=== PATIENT | male | born 1950 | race Caucasian/White ===

== ENCOUNTER 2018-04-21 14:49 | Outpatient (CLI) | payer MEDICARE, BC ==
--- NOTE | 2018-04-22 10:36 | MRI Report ---
Reason: STRAIN OF LEFT ACHILLES TENDON, INITIAL ENCTR Procedure Date: 04/21/2018 Accession Number: [id number] / [id number] Procedure: MRI - Ankle LT W/O CPT Code: FULL RESULT: EXAM: LEFT ANKLE/HINDFOOT MRI WITHOUT CONTRAST EXAM DATE: 04/21/2018 03:53 PM. CLINICAL HISTORY: Strain of left achilles tendon, initial encounter. COMPARISON: ANKLE 3 VIEW LT 03/31/2018 2:28 PM. TECHNIQUE: Multiplanar, multisequence T1-weighted and fluid-sensitive sequences of the ankle/hindfoot without contrast. Other: None. FINDINGS: Bones and Articular Cartilage: Small marginal osteophytes at the tibial plafond. No acute fracture or bone lesions. Articular cartilage is within normal limits. Ligaments: The anterior and posterior tibiofibular, anterior and posterior talofibular, and calcaneofibular ligaments are intact. The deltoid ligaments are intact, but thickened. The spring ligament is intact. Anterior Tendons: The tibialis anterior, extensor hallucis longus, and extensor digitorum longus tendons are unremarkable. Medial Tendons: The tibialis posterior, flexor digitorum longus, and flexor hallucis longus tendons are unremarkable. Lateral Tendons: The peroneus brevis and longus are unremarkable. Achilles Tendon: There is an approximately 1.1 x 0.7 x 0.4 cm partial tear at the mid lateral aspect of the Achilles tendon. The tear involves approximately 40% of the tendon at this location. The remaining Achilles tendon is thickened. Musculature: No edema or fatty atrophy. Other: No effusions. The contents of the sinus tarsi and tarsal tunnel are unremarkable. No plantar fasciitis. There is a lobular, multiseptated, homogeneous, T2 hyperintense and T1 hypointense subcutaneous mass at the posterior lateral aspect of the ankle. The overall size of the mass is approximately 3.4 cm superior to inferior by 5.5 cm AP by 0.9 cm medial to lateral. The anteromedial aspect of the mass extends into the posterolateral aspect of the sinus tarsi. The medial aspect of the mass is adjacent to the calcaneofibular ligament and along the lateral margin of the calcaneus. No surrounding edema. IMPRESSION: 1. Moderate grade partial tear at the mid lateral aspect of the Achilles tendon. Tendinosis at the remaining Achilles tendon. 2. Thickened, but intact deltoid ligaments which may be from previous old injury. 3. A lobular, multiseptated, homogeneous, 5.5 x 0.9 x 3.4 cm subcutaneous mass at the posterior lateral aspect of the ankle which most likely represents a ganglion. [facility] MUSCULOSKELETAL RADIOLOGY SECTION
== END 2018-04-21 14:50 | disposition home or self-care (01) ==
LOC: DI 14:49
PROVIDERS: ATTEND Orthopaedic Surgery
DX: S86.012A Strain of left Achilles tendon, initial encounter (principal); R22.42 Localized swelling, mass and lump, left lower limb

== ENCOUNTER 2019-04-13 12:01 | Emergency (ER) | payer MEDICARE, BC ==
--- NOTE | 2019-04-13 13:10 | XRAY Report ---
Reason: productive cough, fever Procedure Date: 04/13/2019 Accession Number: [id number] / [id number] Procedure: XR - Chest 2 View X-Ray CPT Code: 06933 FULL RESULT: EXAM: CHEST RADIOGRAPHY EXAM DATE: 04/13/2019 12:49 PM. CLINICAL HISTORY: Productive cough, fever. COMPARISON: None. TECHNIQUE: 2 views. FINDINGS: Lungs/Pleura: Right basilar and midlung airspace disease with associated CP angle blunting . Grossly clear left lung. No left pleural effusion. No pneumothorax. Normal volumes. Mediastinum: Heart size top normal..Tortuous aorta. Other: Old healed left rib fractures. IMPRESSION: Right lung airspace process and CP angle blunting. Suggest follow-up to complete radiographic clearing. [facility]
[2019-04-13] MEDS ORDERED: BENZONATATE 100 MG CAPSULE PO STA (14:26)
[2019-04-13] MEDS ORDERED: HYDROcod/ACETAM 5/325 MG TABLET PO STA (14:26)
[2019-04-13] MEDS ORDERED: cefUROXime axetil 250 MG TABLET PO STA (14:26)
[2019-04-13] MEDS ORDERED: DOXYCYCLINE 100 MG TABLET PO STA (14:26)
--- NOTE | 2019-04-13 14:29 | ED Physician Documentation ---
PD HPI DYSPNEA - Stated complaint Stated Complaint: COUGH - Chief complaint Chief Complaint: Resp - History obtained from History obtained from: Patient - History of Present Illness Timing - onset: Other (Sick for 3 days with productive cough, fever to 101, shortness of breath. So worse if he lays down. He also has pain in the right posterior thorax.) Review of Systems Constitutional: reports: Fever, Chills Nose: denies: Rhinorrhea / runny nose, Congestion Throat: denies: Sore throat Cardiac: denies: Chest pain / pressure Respiratory: reports: Dyspnea, Cough GI: denies: Abdominal Pain PD PAST MEDICAL HISTORY - Present Medications Home Medications: Ambulatory Orders Medication Instructions Recorded Confirmed Benzonatate [Tessalon Perle] 100 - 200 mg PO TID PRN #30 capsule 04/13/19 Hydrocodone/Acetaminophen 1 - 2 each PO Q6H PRN #14 tablet 04/13/19 [Hydrocodon-Acetaminophen 5-325] RX: Cefdinir 300 mg PO BID #14 capsule 04/13/19 RX: Doxycycline Hyclate 100 mg PO BID #14 capsule 04/13/19 - Allergies Allergies/Adverse Reactions: Allergies Allergy/AdvReac Type Severity Reaction Status Date / Time No Known Drug Allergies Allergy Verified 04/13/19 12:37 PD ED PE NORMAL - Vitals Vital signs reviewed: Yes - General General: Alert and oriented X 3, No acute distress, Other (Frequently coughing) - HEENT HEENT: PERRL, EOMI - Neck Neck: Supple, no meningeal sign, No bony TTP - Cardiac Cardiac: RRR, No murmur - Respiratory Respiratory: No respiratory distress, Other (Right basilar rhonchi) - Back Back: No CVA TTP, No spinal TTP - Neuro Neuro: Alert and oriented X 3, Normal speech Results - Vitals Vitals: Vital Signs - 24 hr 04/13/19 04/13/19 12:35 14:33 Temperature 37.4 C 98.2 C H Heart Rate 79 74 Respiratory 18 19 Rate Blood Pressure 148/99 H 138/74 H O2 Saturation 95 97 Oxygen O2 Source Room air - Rads (name of study) 2v chest Radiology: EMP read contemporaneously (RML/RLL Pna, with poss small effusion) PD MEDICAL DECISION MAKING - ED course ED course: 68-year-old gentleman with pneumonia both clinical and radiographic. He was administered antibiotics. He is coughing a lot but his vitals are good, I do not see any need for admission at this point. Departure - Departure Disposition: 01 Home, Self Care Clinical Impression: Pneumonia Condition: Good Record reviewed to determine appropriate education?: Yes Instructions: ED Pneumonia Adult Prescriptions: Benzonatate [Tessalon Perle] 100 - 200 mg PO TID PRN #30 capsule PRN Reason: Cough RX: Cefdinir 300 mg PO BID #14 capsule RX: Doxycycline Hyclate 100 mg PO BID #14 capsule Hydrocodone/Acetaminophen [Hydrocodon-Acetaminophen 5-325] 1 - 2 each PO Q6H PRN #14 tablet PRN Reason: Cough Comments: Do not go out in the sun too much while you are on antibiotics. Return for new worsening symptoms or if not improving in the next 2 days. Follow-up with your doctor within the week. She needs to order repeat chest x-ray on you in about 6 weeks time to document resolution. Discharge Date/Time: 04/13/19 14:42
[2019-04-13 14:34] VITALS: BP 138/74
== END 2019-04-13 14:42 | disposition home or self-care (01) ==
LOC: ED 12:01
DX: J18.9 Pneumonia, unspecified organism (principal)
CPT/HCPCS: 71046; 99284; A9270

== ENCOUNTER 2021-12-27 08:13 | Outpatient (CLI) | payer MEDICARE, BC ==
[2021-12-27 08:35] LABS: BASOPHILS % (AUTO) 0.5 %; EOSINOPHILS # (AUTO) 0.2 10^3/uL (0.0-0.7); EOSINOPHILS % (AUTO) 3.7 %; HCT - HEMATOCRIT 39.9 % (42.0-52.0); HGB - HEMOGLOBIN 12.3 g/dL (14.0-18.0); LYMPHOCYTES # (AUTO) 1.8 10^3/uL (1.5-3.5); LYMPHOCYTES % (AUTO) 29.3 %; MEAN CORPUSCULAR HEMOGLOBIN 23.2 pg (27.0-31.0); MEAN CORPUSCULAR HGB CONC 30.8 g/dL (32.0-36.0); MEAN CORPUSCULAR VOLUME 75.3 fL (80.0-94.0); MEAN PLATELET VOLUME 11.1 fL (7.4-11.4); MONOCYTES # (AUTO) 0.5 10^3/uL (0.0-1.0); MONOCYTES % (AUTO) 8.6 %; NEUTROPHILS # (AUTO) 3.6 10^3/uL (1.5-6.6); NEUTROPHILS % (AUTO) 57.7 %; PLT - PLATELET COUNT 221 10^3/uL (130-450); RED CELL DISTRIBUTION WIDTH 17.2 % (12.0-15.0); WHITE BLOOD COUNT 6.3 x10^3/uL (4.8-10.8)
[2021-12-27 09:03] LABS: THYROID STIMULATING HORMONE 0.86 uIU/mL (0.34-5.60)
[2021-12-27 09:04] LABS: ALBUMIN 4.1 g/dL (3.2-5.5); ALBUMIN/GLOBULIN RATIO 1.4 (1.0-2.2); ALKALINE PHOSPHATASE 57 IU/L (42-121); ALT ALANINE AMINOTRANSFERASE 14 IU/L (10-60); AST ASPARTATE AMINOTRANSFERASE 31 IU/L (10-42); BILIRUBIN,TOTAL 1.3 mg/dL (0.2-1.0); BUN - BLOOD UREA NITROGEN 17 mg/dL (6-20); CALCIUM 9.9 mg/dL (8.5-10.3); CARBON DIOXIDE - CO2 21 mmol/L (21-32); CHLORIDE 104 mmol/L (101-111); CHOLESTEROL 194 mg/dL; CREATININE 1.2 mg/dL (0.6-1.2); GFR - MDRD 60 (>89); GLUCOSE 78 mg/dL (70-100); HDL CHOLESTEROL 49 mg/dL; LDL CHOLESTEROL,CALCULATED 130 mg/dL; LDL/HDL RATIO 2.7 (<3.6); SODIUM 134 mmol/L (135-145); TOTAL PROTEIN 7.1 g/dL (6.7-8.2); TRIGLYCERIDES 74 mg/dL; URIC ACID 7.1 mg/dL (2.6-7.2); VLDL CHOLESTEROL 15 mg/dL
[2021-12-27 09:25] LABS: PSA TOTAL 4.52 ng/mL (0.000-2.000)
[2021-12-27 10:35] LABS: PSA FREE 1.89 ng/mL (0.16-2.81)
== END 2021-12-27 08:14 | disposition home or self-care (01) ==
LOC: LAB.R 08:13
PROVIDERS: ATTEND Internal Medicine
DX: R14.0 Abdominal distension (gaseous) (principal); N40.0 Benign prostatic hyperplasia without lower urinary tract symptoms; H26.9 Unspecified cataract; R53.83 Other fatigue; M10.9 Gout, unspecified; I10 Essential (primary) hypertension; Z79.899 Other long term (current) drug therapy
CPT/HCPCS: 80053; 80061; 82306; 82607; 83721; 84153; 84154; 84443; 84550; 85025

== ENCOUNTER 2022-01-01 14:48 | Outpatient (CLI) | payer BC, MEDICARE ==
[2022-01-01 18:19] LABS: % IRON SATURATION 5 % (20-50); IRON 23 ug/dL (45-182); TOTAL IRON BINDING CAPACITY 456 ug/dL (250-450); TRANSFERRIN 326 mg/dL (180-329)
== END 2022-01-01 23:59 | disposition home or self-care (01) ==
LOC: LAB.R 14:48
PROVIDERS: ATTEND Internal Medicine
DX: D50.9 Iron deficiency anemia, unspecified (principal)
CPT/HCPCS: 82728; 83540; 84466

== ENCOUNTER 2022-01-16 08:00 | Outpatient (CLI) | payer MEDICARE | END 2022-01-16 23:59 | disposition home or self-care (01) | LOC: LAB.R 08:00 | PROVIDERS: ATTEND Internal Medicine | DX: N40.1 Benign prostatic hyperplasia with lower urinary tract symptoms (principal); N13.8 Other obstructive and reflux uropathy | CPT/HCPCS: 87086 ==

== ENCOUNTER 2022-04-02 08:00 | Outpatient (CLI) | payer BC, MEDICARE ==
[2022-04-02 16:11] LABS: BASOPHILS % (AUTO) 0.6 %; EOSINOPHILS # (AUTO) 0.2 10^3/uL (0.0-0.7); EOSINOPHILS % (AUTO) 2.8 %; HCT - HEMATOCRIT 42.6 % (42.0-52.0); HGB - HEMOGLOBIN 13.2 g/dL (14.0-18.0); LYMPHOCYTES # (AUTO) 2.3 10^3/uL (1.5-3.5); LYMPHOCYTES % (AUTO) 43.6 %; MEAN CORPUSCULAR HEMOGLOBIN 23.8 pg (27.0-31.0); MEAN CORPUSCULAR VOLUME 76.8 fL (80.0-94.0); MEAN PLATELET VOLUME 9.8 fL (7.4-11.4); MONOCYTES # (AUTO) 0.5 10^3/uL (0.0-1.0); MONOCYTES % (AUTO) 9.1 %; NEUTROPHILS # (AUTO) 2.4 10^3/uL (1.5-6.6); NEUTROPHILS % (AUTO) 43.9 %; PLT - PLATELET COUNT 244 10^3/uL (130-450); RED BLOOD COUNT 5.55 10^6/uL (4.70-6.10); RED CELL DISTRIBUTION WIDTH 19.3 % (12.0-15.0); WHITE BLOOD COUNT 5.4 x10^3/uL (4.8-10.8)
[2022-04-02 16:32] LABS: % IRON SATURATION 6 % (20-50); IRON 25 ug/dL (45-182); TOTAL IRON BINDING CAPACITY 448 ug/dL (250-450); TRANSFERRIN 320 mg/dL (180-329)
== END 2022-04-02 23:59 | disposition home or self-care (01) ==
LOC: LAB.R 08:00
PROVIDERS: ATTEND Internal Medicine
DX: D64.9 Anemia, unspecified (principal)
CPT/HCPCS: 82728; 83540; 84466; 85025

== ENCOUNTER 2025-06-30 13:04 | Inpatient (IN) ==
--- OUTSIDE RECORDS SUMMARY | 2025-06-30 13:40 | EXTERNAL MEDICAL SUMMARY RPT | Continuity of Care Document ---
Author Organization [place] Address [address] [place] [id number] Phone Care Team Providers Care Hatch Supervisor Name Role Phone Aixa Smyth Unavailable Unavailable Allergies and Intolerances date description facility reaction severity 2025-06-20 09:36:48 [facility] (no reactio n) (no severity) Medications date description facility 2025-05-12 00:00 Hydrochlorothiazide [facility] 2025-05-24 00:00 Hydrochlorothiazide [facility] 2025-04-05 00:00 [facility] 2025-06-06 00:00 [facility] Problems date description facility 2025-06-20 09:42 Essential (primary) [facility] 2025-06-20 09:42 Chronic gout, unspecified, with out tophus (topnv) [facility] 2025-06-20 09:42 Body mass index [BMI] 30.0-30.9 , [facility] 2025-06-20 09:42 Persons encountering health services in other specified Located within [facility] 2025-06-20 09:42 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) [facility] 2025-06-20 09:42 Presence of artificial hip join t, [facility] 2025-06-24 14:45 Essential (primary) [facility] 2025-06-24 14:45 Chronic gout, unspecified, with out tophus (topnv) [facility] 2025-06-24 14:45 Flank pain, left side [facility] 2025-06-24 14:45 Body mass index [BMI] 30.0-30.9 , [facility] 2025-06-24 14:45 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) [facility] 2025-06-24 14:45 Presence of artificial hip join t, [facility] 2025-06-25 16:33 Essential (primary) [facility] 2025-06-25 16:33 Chronic gout, unspecified, with out tophus (tophi) [facility] 2025-06-25 16:33 Flank pain, left side [facility] 2025-06-25 16:33 Body mass index [BMI] 30.0-30.9 , adult [facility] 2025-06-25 16:33 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 8 % (missing) Eosinophils Absolute Auto 2025-06-24 :[address] [place] [address] 1 00 /ul (missing) Hemoglobin 2025-06-24 :[address] [place] [address] 15.8 g/dl (missing) Red Cell Distribution Width 2025-06-24 :[address] [place] [address] 16.7 % (missing) Platelet Count 2025-06-24 13:[address] [place] [address] 207 x1 0 3/ul (missing) Lymphocytes Absolute Auto 2025-06-24 13:[address] [place] [address] 2 100 /ul (missing) Mean Corpuscular Hemoglobin 2025-06-24 :[address] [place] [address] 27.0 pg (missing) Neutrophils Absolute Auto 2025-06-24 13:[address] [place] [address] 3 100 /ul (missing) Mean Corpuscular HGB Conc 2025-06-24 13:[address] [place] [address] 3 3.0 % (missing) Lymphocytes Percent Auto 2025-06-24 13:[address] [place] [address] 36 .1 % (missing) Hematocrit 2025-06-24 13:[address] [place] [address] 47.8 % (missing) Red Blood Cell Count 2025-06-24 13:[address] [place] [address] 5.86 x10 6/ul (missing) White Blood Cell Count 2025-06-24 :[address] [place] [address] 5.9 x10 3/ul (missing) Monocytes Absolute Auto 2025-06-24 :[address] [place] [address] 500 /ul (missing) Neutrophils Percent Auto 2025-06-24 13:[address] [place] [address] 53 .4 % (missing) Monocytes Percent Auto 2025-06-24 :[address] [place] [address] 8.1 % (missing) Mean Corpuscular Volume 2025-06-24 13:24 [facility] 81. 6 fl (missing) Result panel 2 Estimated Glomerular Filt Rate 2025-06-24 13:44 [facility] > 60 ml/min Reported eGFR is based the CKD-EPI 2020 equation that does not use a race coefficient. An eGFR below 60 mL/min/1.73m2 suggests that some kidney damage has occurred, and indicative of chronic kidney disease if persisting greater than 3 months. An eGFR less than 15 is indicative of kidney failure. Bilirubin Total 2025-06-24 13:44 [facility] 0.9 mg/dl (missing) Creatinine 2025-06-24 13:[address] [place] [address] 1.14 mg/dl (missing) Albumin Globulin Ratio 2025-06-24 13:[address] [place] [address] 1.3 (missing) (missing) Calcium 2025-06-24 13:[address] [place] [address] 10.9 mg/dl (missing) Chloride 2025-06-24 13:[address] [place] [address] 105 mmol/l (missing) BUN Creatinine Ratio 2025-06-24 13:[address] [place] [address] 14.0 (missing) (missing) Sodium 2025-06-24 13:[address] [place] [address] 140 mmol/l (missing) Blood Urea Nitrogen 2025-06-24 13:[address] [place] [address] 16 mg/dl (missing) Triglycerides 2025-06-24 13:[address] [place] [address] 168 mg/dl NORMAL: <150 MG/DL BORDERLINE HIGH: 150-199 MG/DL HIGH: 200-499 MG/DL VERY HIGH: >500 MG/DL LDL Cholesterol Calculated 2025-06-24 13:[address] [place] [address] 189 mg/dl OPTIMAL LESS THAN 100 MG/DL NEAR OR ABOVE OPTIMAL 100 - 129 MG/DL BORDERLINE HIGH 130 - 159 MG/DL HIGH 160 - 189 MG/DL VERY HIGH >= 190 MG/DL Alanine Aminotransferase 2025-06-24 13:[address] [place] [address] 21 iu/l (missing) Carbon Dioxide 2025-06-24 13:[address] [place] [address] 25 mmol/l (missing) Cholesterol 2025-06-24 13:[address] [place] [address] 273 mg/dl Desirable: <200 mg/dL Borderline High: 200-239 mg/dL High: >239 mg/dL Globulin 2025-06-24 13:[address] [place] [address] 3.8 g/dl (missing) Potassium 2025-06-24 13:44 [facility] 4.6 mmol/l (missing) Albumin 2025-06-24 13:[address] [place] [address] 4.9 g/dl (missing) Aspartate Aminotransferase 2025-06-24 13:44 [facility] 42 iu/l (missing) HDL Cholesterol 2025-06-24 13:[address] [place] [address] 50 mg/dl ATP-III [place] HDL >60 mg/dL COUNT A 'NEGATIVE' RISK FACTOR. Alkaline Phosphatase 2025-06-24 13:44 [facility] 74 u/l (missing) Total Protein 2025-06-24 13:44 [facility] 8.7 g/dl (missing) Glucose 2025-06-24 13:44 [facility] 97 mg/dl (missing) Result panel 3 Urobilinogen Urine UA 2025-06-24 13:45 [facility] 0.2 e.u./dl (missing ) Specific [place] Urine UA 2025-06-24 13:[address] [place] [address] 1.015 (missing) (missing ) pH Urine UA 2025-06-24 13:[address] [place] [address] 6.5 (miss ing) (missing) Appearance Urine UA 2025-06-24 13:[address] [place] [address] CLEAR (missing) (missing) Bilirubin Urine UA 2025-06-24 13:[address] [place] [address] NEGATIVE (missing) (missing) Ketones Urine UA 2025-06-24 13:[address] [place] [address] NEGATIVE (missing) (missing) Leukocyte Esterase Urine UA 2025-06-24 13:[address] [place] [address] NEGATIVE (missing) (missing ) Nitrite Urine UA 2025-06-24 13:[address] [place] [address] NEGATIVE (missing) (missing) Occult Blood Urine UA 2025-06-24 13:[address] [place] [address] NEGATIVE (missing) (missing ) Glucose Urine UA 2025-06-24 13:45 [facility] NEGATIVE g/dl (missing) Protein Urine UA 2025-06-24 13:[address] [place] [address] TRACE (missing) (missing) Color Urine UA 2025-06-24 13:[address] [place] [address] YELLOW (m issing) Urine Source: Urine, Clean Catch Culture if Indicated? Y Result panel 4 Urobilinogen Urine UA 2025-06-24 13:50 [facility] 0.2 e.u./dl (missing) Squamous Epithelial Cell Urine 2025-06-24 13:50 [facility] 1-5 /HPF (missing) (missing) RBC Urine 2025-06-24 13:50 [facility] 1-5/HPF (missing) (missing) WBC Urine 2025-06-24 13:[address] [place] [address] 1-5/HPF (missing) (missing) Specific [place] Urine UA 2025-06-24 13:[address] [place] [address] 1.015 (missing) (missing) Urine Volume 2025-06-24 13:[address] [place] [address] 10mL (spun) (missing) (missing) pH Urine UA 2025-06-24 13:[address] [place] [address] 6.5 (missing) (missing) Appearance Urine UA 2025-06-24 13:[address] [place] [address] CLEAR (missing) (missing) Culture Indicated Urine 2025-06-24 13:[address] [place] [address] Cult Not Indicated (missing) (missing) Bacteria Urine 2025-06-24 13:[address] [place] [address] Few (2-10) (missing) (missing) Bilirubin Urine UA 2025-06-24 13:[address] [place] [address] NEGATIVE (missing) (missing) Ketones Urine UA 2025-06-24 13:[address] [place] [address] NEGATIVE (missing) (missing) Leukocyte Esterase Urine UA 2025-06-24 13:[address] [place] [address] NEGATIVE (missing) (missing) Nitrite Urine UA 2025-06-24 13:[address] [place] [address] NEGATIVE (missing) (missing) Occult Blood Urine UA 2025-06-24 13:[address] [place] [address] NEGATIVE (missing) (missing) Glucose Urine UA 2025-06-24 13:[address] [place] [address] NEGATIVE g/dl (missing) Protein Urine UA 2025-06-24 13:[address] [place] [address] TRACE (missing) (missing) Color Urine UA 2025-06-24 13:[address] [place] [address] YELLOW (missing) Urine Source: Urine, Clean Catch Culture if Indicated? Y Social History date description facility 2025-06-20 00:00 Never smoked tobacco (finding) [facility] Vital Signs date measurement value units 2025-06-20 00:00 BMI 29.7 kg/m2 2025-06-20 00:00 BP_diastolic 80 mmHg 2025-06-20 00:00 BP_systolic 126 mmHg 2025-06-20 00:00 heart_rate 74 /min 2025-06-20 00:00 height_metric 187.96 cm 2025-06-20 00:00 o2_saturation 97 % 2025-06-20 00:00 weight_metric 105.23 kg
[2025-06-30] MEDS: HYDROmorphone 0.5 MG/0.5 ML SYRINGE IVP STA (13:54)
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
[2025-06-30] MEDS ORDERED: GABAPENTIN 300 MG CAPSULE PO PRN (15:32)
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
--- NOTE | 2025-06-30 15:56 | XRAY Report ---
PROCEDURE: XR Chest 1V INDICATIONS: pneumo TECHNIQUE: One view of the chest was acquired. COMPARISON: Correlation is made with the accompanying imaging. FINDINGS: Surgical changes and devices: None. Lungs and pleura: There is a small right-sided pneumothorax seen, which is much better seen on the accompanying CT examination. The volume of the pneumothorax is regarded to be unchanged from the prior. The left lung is unremarkable. Mediastinum: Mediastinal contours appear normal. Heart size is normal. Bones and chest wall: No suspicious bony lesions. Age-appropriate degenerative changes are seen. Overlying soft tissues appear unremarkable. IMPRESSION: There is a small right-sided pneumothorax, which is much better seen on the accompanying CT examination. The volume of the pneumothorax is regarded to be stable. Reviewed by: William Dowell MD on 06/30/2025 2:52 PM [facility] Approved by: William Dowell MD on 06/30/2025 2:52 PM [facility] Station ID: [id number]
[2025-06-30] MEDS ORDERED: ONDANSETRON 4 MG/2 ML VIAL IVP PRN (16:45)
[2025-06-30] MEDS: ACETAMINOPHEN 500 MG TABLET PO SCH (16:52)
[2025-06-30] MEDS: IBUPROFEN 400 MG TABLET PO SCH (16:52)
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
[2025-06-30] MEDS: ONDANSETRON ODT 4 MG TABLET TL PRN (17:03)
[2025-06-30] MEDS: oxyCODONE 5 MG TABLET PO PRN (17:03)
[2025-06-30 19:05] LABS: BUN - BLOOD UREA NITROGEN 20.0 mg/dL (6-20); CARBON DIOXIDE - CO2 27.0 mmol/L (21-32); CREATININE 1.2 mg/dL (0.6-1.3); GFR - MDRD 59.0 (>89)
--- NOTE | 2025-07-01 08:24 | PROVIDER PROGRESS NOTE ---
Subjective General Admit Date: 06/30/25 Other Other Information/Narrative: Pain improved with multimodal pain medications. Tolerating diet, no n/v. No SOA this AM. Review of Systems Status of ROS: 10 or more systems reviewed and unremarkable except as noted in history and below Exam Exam Vital Signs: Vital Signs x48h Temp Pulse Resp BP BP Pulse Ox O2 Flow Rate 07/01/25 07:55 4 07/01/25 07:51 97.7 F 56 L 16 138/84 H 94 4 07/01/25 05:00 97.7 F 65 18 141/81 H 97 4 Tertiary exam: GEN: No acute distress, appears stated age, alert and oriented HEENT: NCAT, MMM, EOMI, motor and sensation intact, no jaw malocclusion, no midline neck pain with palpation, no visible signs of trauma NEURO: CN II-XII grossly intact, no obvious focal deficits, GCS=15 CV: bradycardic with normal rhythm, no murmur appreciated PULM: decreased breath sounds on right side, no wheezes appreciated, exquisite right lateral chest wall ttp overlying rib fractures, otherwise non tender ABD: soft, non tender, no rebound or guarding, no visible signs of trauma BACK: no midline tenderness to palpation, no step offs, no visible signs of trauma CIRCULATORY: no clubbing, cyanosis, or edema, 2+ pulses in all extremities SKIN: no lesions appreciated LYMPH: no obvious lymphadenopathy MSK: 4/4 strength in all extremities, motor and sensation intact in all extremities PSYCH: Affect is appropriate Image CXR this AM independently read by me shows interval increase in right pneumothorax without tension. Impression/Plan Problem List (1) Traumatic pneumothorax: Plan: - increased pneumothorax, still asymptomatic. This is a pneumothorax that is large enough to require a chest tube at this time. I discussed this with the patient and his at bedside. We discussed the risks, benefits, and alternatives to placing the tube including bleeding, damage to surrounding structures, and the possible need for further surgeries or procedures. I also made clear the risk of development of tension physiology if the pneumothorax is not treated. The patient voiced understanding, his questions were answered, and he agreed to proceed with chest tube placement at this time. A consent was signed by the patient prior to the procedure. -Preprocedure antibiotics will be given, pain and anxiety medications will also be given. The procedure is dictated in a separate report. -Chest tube will be placed to continuous low suction. - Titrate oxygen for O2 sats of at least 92%, higher oxygen no longer needed with chest tube in place. Patient was satting well on room air prior to chest tube placement. Continue to encouraged IS, activity. - repeat CXRafter chest tube placement and in AM. If pneumothorax has resolved in the morning, and the patient does not have an air leak, will consider putting the chest tube to waterseal tomorrow morning. - placed on tele and continuous O2 monitoring (2) Fall from standing: Plan: - no additional injuries identified on tertiary exam, imaging (3) Fracture of right eighth rib: (4) Fracture of right seventh rib: (5) Left anterior fascicular block: Plan: seen on EKG, known to patient prior to presentation electrolytes wnl will continue to monitor Plan multimodal pain control for rib fractures (scheduled tylenol, scheduled ibuprofen, scheduled gabapentin, lidoderm patch, prn oxycodone, prn IV dilaudid for breakthrough) regular diet SCDs for DVT ppx Patient was changed to inpatient today due to the need for chest tube placement. Plan of care discussed with patient and his who are agreeable. All questions were answered.
[2025-07-01] MEDS: LOSARTAN 50 MG TABLET PO SCH (08:43)
[2025-07-01] MEDS ORDERED: LIDOCAINE 1%-EPI 1:100000 20 ML MDV ID STA (08:58)
--- NOTE | 2025-07-01 09:06 | XRAY Report ---
PROCEDURE: XR Chest 2V INDICATIONS: pneumothrax evaluation TECHNIQUE: 2 views of the chest were acquired. COMPARISON: June 30, 2025 FINDINGS: Surgical changes and devices: None. Lungs and pleura: Large right-sided hydropneumothorax has increased in size in air component compared to plain film yesterday. Associated partial atelectasis of the right lung. Left lung clear. No midline shift. Mediastinum: Mediastinal contours appear normal. Heart size is normal. Bones and chest wall: Soft tissue air along the right chest wall. Rib fractures better demonstrated on prior CT. IMPRESSION: Increased size of right pneumothorax. Reviewed by: Vasu Page MD on 07/01/2025 9:02 AM [facility] Approved by: Vasu Page MD on 07/01/2025 9:02 AM [facility] Station ID: [id number]
[2025-07-01] MEDS ORDERED: MIDAZOLAM 2 MG/2 ML VIAL ONE (09:12)
[2025-07-01] MEDS: HYDROmorphone 0.5 MG/0.5 ML SYRINGE IVP PRN (09:26)
[2025-07-01] MEDS: MIDAZOLAM 2 MG/2 ML VIAL IVP ONE (09:38)
[2025-07-01] MEDS: BUPIVACAINE 0.25% PF 30 ML VIAL ID STA (10:10)
[2025-07-01] MEDS: LIDOCAINE 1%-EPI 1:100000 30 ML MDV ID STA (10:11)
--- NOTE | 2025-07-01 11:46 | XRAY Report ---
PROCEDURE: XR Chest for Line Placement INDICATIONS: pneumothorax, s/p chest tube placement TECHNIQUE: 1 view of the chest COMPARISON: Same day FINDINGS: Interval placement of large bore chest tube on the right with near complete resolution of pneumothorax. Suspected pleural line at the right lung apex suggestive of residual small pneumothorax. Left lung clear. Heart size normal. Soft tissue gas along the right chest wall. IMPRESSION: Decreased right pneumothorax following chest tube placement. Reviewed by: Vasu Page MD on 07/01/2025 11:43 AM PST Approved by: Vasu Page MD on 07/01/2025 11:43 AM PST Station ID: [id number]
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
[2025-07-01] MEDS: METOCLOPRAMIDE 10 MG/2 ML VIAL IVP PRN (13:21)
--- NOTE | 2025-07-01 14:52 | PHARMACY PROGRESS NOTE ---
Best Possible Medication History Admit Date and Time: 07/01/25 1105 Home Medications Medication Instructions Recorded Confirmed Type hydrochlorothiazide 25 mg tablet 12.5 mg PO QDAY 05/2607/01/25 History losartan 50 mg tablet 50 mg PO BID 05/26/25 History allopurinol 300 mg tablet 150 mg PO DAILY 07/01/25 History omeprazole magnesium 20 mg 20 mg PO DAILY 07/01/25 History tablet,delayed release (Prilosec OTC) Processed by: Pharmacy Medications reviewed in ED?: No Medication History completed: Yes Patient Interview: Completed Secondary Source(s): Spouse/Significant other and Insurance records [facility] Statement: As the person ultimately responsible for medication therapy, providers are able to order a medication from an existing home medication list in [facility] via the "Reconcile Routine" prior to Confirmation of that medication by sales support engineer. Such practice is discouraged except when the physician, in their clinical judgment, deems that a medical need exists for a medication without regard to previous use.
[2025-07-01] MEDS: HYDROcod/ACETAM 5/325 MG TABLET PO SCH (19:02)
[2025-07-01] MEDS: ACETAMINOPHEN 325 MG TABLET PO SCH (19:02)
--- NOTE | 2025-07-02 08:31 | XRAY Report ---
PROCEDURE: XR Chest 1V INDICATIONS: re eval pneumothorax TECHNIQUE: One view of the chest was acquired. COMPARISON: 07/01/2025, 06/30/2025 FINDINGS: Surgical changes and devices: There is a right-sided chest tube. Lungs and pleura: No definite right-sided pneumothorax is seen. Mediastinum: Mediastinal contours appear normal. Heart size is normal. Bones and chest wall: No suspicious bony lesions. Remote left posterior rib fractures are seen. Right-sided soft tissue gas can be seen. IMPRESSION: There is a right-sided chest tube, without a definite right-sided pneumothorax. Right-sided soft tissue gas is seen. Reviewed by: William Dowell MD on 07/02/2025 7:28 AM [facility] Approved by: William Dowell MD on 07/02/2025 7:28 AM [facility] Station ID: [id number]
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
--- NOTE | 2025-07-02 14:45 | XRAY Report ---
PROCEDURE: XR Chest 1V INDICATIONS: ptx re eval TECHNIQUE: One view of the chest was acquired. COMPARISON: Same day chest radiograph FINDINGS: Surgical changes and devices: Thoracostomy tube with tip overlying the right upper lobe. Lungs and pleura: No definite right-sided pneumothorax. Mild bibasilar atelectasis Mediastinum: Mediastinal contours appear normal. Heart size is normal. Bones and chest wall: No suspicious bony lesions. Subcutaneous emphysema in the right chest wall. IMPRESSION: Right thoracostomy tube without definite pneumothorax. Reviewed by: Renato Greenwood MD on 07/02/2025 2:42 PM PST Approved by: Renato Greenwood MD on 07/02/2025 2:42 PM PST Station ID: [id number]
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
[2025-07-02 15:59] VITALS: BP 143/78; TEMP 98.2; O2SAT 98
--- OUTSIDE RECORDS SUMMARY | 2025-07-09 06:29 | EXTERNAL MEDICAL SUMMARY RPT | Clinical Summary ---
Author Organization [facility] Address [address], [place] [address] Care Team Providers Care Certified Orthotist/Pedorthist Name Role Phone Selin Lyon MD Primary Care Provider [phone] Allergies No known active allergies Medications allopurinol (Zyloprim) 150 MG split tablet Take 150 mg by mouth in the morning. Splits a 300mg tablet and take 0.5 tab Active tadalafil (Cialis) 10 MG tablet Take 5 mg by mouth at bedtime. Active omeprazole OTC (PriLOSEC OTC) 20 MG EC tablet Take 20 mg by mouth in the morning. Active Milk Thistle 300 MG capsule Take 150 mg by mouth once daily. Active saw palmetto 160 MG capsule Take 1 capsule by mouth once daily. Active Red Yeast Rice Extract 600 MG capsule Take 2 tablets by mouth once daily. Active co-enzyme Q-10 30 MG capsule Take 30 mg by mouth once daily. Active HAWTHORN PO Take 1 capsule by mouth once daily. Active Social History Tobacco Use Types Packs/Day Years Used Date Smoking Tobacco: Never Smokeless Tobacco: Never Tobacco Cessation:Counseling Given: Not Answered Alcohol Use Standard Drinks/Week Comments Yes 0 (1 standard drink = 0.6 oz pur e alcohol) 1 glass/ wine per month Humiliation, Afraid, Rape, and Kick questionnair e Answer Date Recorded Within the last year, have y ou been afraid of your partner or ex-partner? No 07/03/2022 Within the last year, have y ou been humiliated or emotionally abused in other ways by your partner or ex-partner? No Within the last year, have y ou been kicked, hit, slapped, or otherwise physically hurt by your partner or ex-partner? No 07/03/2022 Within the last year, have y ou been raped or forced to have any kind of sexual activity by your partner or ex-partner? No 07/03/2022 Sex and Gender Information Value Date Recorded Sex Assigned at Not on file Legal Sex Male 9:25 PM PDT Gender Identity Male 07/02/2022 6:16 PM PST Sexual Orientation Don't know 07/02/2022 6: 16 PM PST Last Filed Vital Signs Vital Sign Reading Time Taken Comments Blood Pressure 173/102 07/03/2022 8:30 AM PST Pulse 49 07/03/2022 8:30 AM PST Temperature 36 C (96.8 F) 07/03/2022 8:30 AM PST Respiratory Rate 16 07/03/2022 8:30 AM PST Oxygen Saturation 96% 07/03/2022 8:30 AM PST Inhaled Oxygen Concentration - - Weight 113 kg (248 lb 7.3 oz) 07/03/2022 6:45 AM PST Height 188 cm (6' 2") 07/03/2022 6:45 AM PST Body Mass Index 31.9 07/03/2022 6:45 AM PST Plan of Treatment Health Maintenance Due Date Last Done Comments Anoscopy 1950 CT Colonography 1950 Colonoscopy 1950 Colorectal Cancer Screening 1950 FIT-DNA 1950 FIT 1950 FOBT 1950 Lipid Panel 1950 Sigmoidoscopy 1950 Hepatitis B Screening 1968 Hepatitis C Screening 1968 Adult Depression Screening 1969 Hepatitis B Vaccines (3 of 3 - 19+ 3-dose series) 03/29/1998 02/01/1998, 04/19/1997 Zoster Vaccines (1 of 2) 2000 Pneumococcal Vaccine: 50+ Years (2 of 2 - PPSV23, PCV20, or PCV21) 11/30/2015 10/05/2015 DTaP/Tdap/Td Vaccines (3 - T d or Tdap) 04/06/2021 10/04/2020, 06/11/2011 COVID-19 Vaccine ( - 2024-2 6 season) 2025 Influenza Vaccine (#1) 2025 2, 06/26/2007, 08/09/2000 RSV: At-Risk Patients (60+ Years) and Gestational Age of 32-36 Weeks for Patients (1 - 1-dose 75+ series) 2025 Hepatitis A Vaccines Aged Out No long er eligible based on patient's age to complete this topic Meningococcal Vaccine Aged Out No bill pablo eligible based on patient's age to complete this topic RSV: Pediatric Patients Age 0-20 months Aged Out No longer eligible b ased on patient's age to complete this topic Medical Devices Implanted Type Area Senior Project Coordinator Device Identifier Shelf Expiration Date Model / Serial / Lot Lens Iol Dib00 18.0 Technis - [id number] - [id number] Implanted:Qty: 1 on 06/05/2022 by Storm Bansal MD at [facility] IMPLANT, EYE Right: Eye [employer] 01/20/2025 DIB00 18.0 / [id number] / Lens Iol Dib00 18.0 Technis - [id number] - [id number] Implanted:Qty: 1 on 07/03/2022 by Storm Bansal MD at [facility] IMPLANT, EYE Left: Eye VELIA 02/25/2025 [id number] / [id number] / Insurance MEDICARE ADVANTAGE [employer] Advance Directives * Full Code (Latest Code Status on File) Date Activated Date Inactivated Comments 07/02/2022 4:55 PM 07/03/2022 10:57 AM * Full Code Date Activated Date Inactivated Comments 06/04/2022 7:08 PM 06/05/2022 2:23 PM Care Teams Certified Orthotist/Pedorthist Relationship Specialty Start Date End Date Selin Lyon MD [address] [place], [place] [id number] PCP - General 06/05/22
--- OUTSIDE RECORDS SUMMARY | 2025-07-09 06:29 | EXTERNAL MEDICAL SUMMARY RPT | Clinical Summary ---
Author Organization [facility] Address [address] [place] [address] Care Team Providers Care Edger Hand Name Role Phone Selin Lyon Primary Care Provider [phone] Allergies No known active allergies Medications CHOLECALCIFEROL, VITAMIN D3, ORAL Take 1 tablet by mouth daily Active magnesium citrate 100 mg Capsule Take by mouth Active milk thistle 150 mg Capsule Take by mouth Activ e multivitamin,tx- minerals Tablet Take by mouth Active nutritional supplements 0.03-1 gram-kcal/mL Liquid Take by mouth 7 Active RED YEAST RICE EXTRACT, BULK, MISC Take 1 tablet by mouth daily Active vitamin E, dl,tocopheryl acet, (VITAMIN E, DL, ACETATE,) 100 unit Capsule Take 45 mg by mouth daily Active allopurinoL (ZYLOPRIM) 100 MG tablet Take 150 mg by mouth every morning 0 Active allopurinoL (ZYLOPRIM) 300 MG tablet Take 150 mg by mouth daily 7 Active allopurinoL (ZYLOPRIM) 300 MG tablet Take 300 mg by mouth daily 2 Active doxazosin (CARDURA) 2 MG tablet Take 2 mg by mouth At bedtime 2 Active HYDROcodone-acet aminophen (NORCO) 5-325 mg per tablet Take by mouth 7 Active sodium chloride irrigation 0.9 % irrigation 2 Active vitamin E, dl,tocopheryl acet, (VITAMIN E, DL, ACETATE,) 100 unit Capsule Take by mouth Active omeprazole (PRILOSEC OTC) 20 MG tablet Take 20 mg by mouth daily Active tadalafiL (CIALIS) 10 MG tablet Take 5 mg by mouth daily as needed for Erectile Dysfunction Active Active Problems Problem Noted Date Diagnosed Date Iron deficiency anemia Immunizations Immunization Administration Dates Next Due Flu 08/09/2000 HepB 02/01/1998,04/19/1997 Influenza quad (PF) 08/14/2016,05/03/2014 Influenza trivalent (PF) (3 years and up) 07/16/2012 Influenza trivalent with pre servative (6 months and up) 06/26/2007 Moderna SARS-CoV-2 Vaccination ,07/02/2021,10/26/2020,2020 Pneumococcal Conjugate 13-Valent 10/05/2015 Tdap 10/04/2020,06/11/2011 Social History Tobacco Use Types Packs/Day Years Used Date Smoking Tobacco: Never Smokeless Tobacco: Never Alcohol Use Standard Drinks/Week Comments Not Currently 0 (1 standard drink = 0.6 oz pur e alcohol) Sex and Gender Information Value Date Recorded Sex Assigned at Not on file Legal Sex Male 9:41 AM PDT Gender Identity Not on file Sexual Orientation Not on file Last Filed Vital Signs Vital Sign Reading Time Taken Comments Blood Pressure 156/104 03/12/2022 12:41 PM PDT Pulse 62 03/12/2022 12:41 PM PDT Temperature 36.6 C (97.9 F) 03/12/2022 12:04 PM PDT Respiratory Rate 16 03/12/2022 12:4 1 PM PDT Oxygen Saturation 98% 03/12/2022 12: 41 PM PDT Inhaled Oxygen Concentration - - Weight 104.9 kg (231 lb 3.2 oz) 022 10:32 AM PDT Height 190.5 cm (6' 3") 03/12/2022 10:3 2 AM PDT Body Mass Index 28.9 03/12/2022 10:32 AM PDT Plan of Treatment Health Maintenance Due Date Last Done Comments Disability Screening 1950 Hepatitis C Screening 1950 Lipid Panel (Cholesterol Screening) 1968 FIT (FOBT) 1995 Zoster (1 of 2) 2000 Pneumococcal 50+ Years (2 of 2 - PCV20 or PCV21) 10/04/2016 10/05/2015 FIT-DNA (COLOGUARD) 04/29/2017 04/29/2014 CT Colonography 04/29/2019 04/29/2014 Sigmoidoscopy 04/29/2019 04/29/2014 Drug, Alcohol, and Depressio n Screening 08/04/2024 SOGIE 08/04/2024 Covid-19 Vaccine (5 - 2024-2 6 season) 2025 12/29/2021, 07/02/2021, 10/26/2020, Additional history exists Influenza Vaccine (#1) 2025 7, 05/03/2014, 07/16/2012, Additional history exists RSV Vaccines (1 - 1-dose 75+ series) 2025 Colonoscopy 03/12/2027 03/12/2022, 04/29/2014 Colorectal Cancer Screening 03/12/2027 DTaP/Tdap/Td Vaccine (3 - Td or Tdap) 10/04/2030 10/04/2020, 06/11/2011 Procedures Procedure Name Priority Date/Time Associated Diagnosis Comments COLONOSCOPY EXTERNAL ENTRY Routine 04/29/2014 from Last 3 Months or Most Recently Relevant to Health Maintenance Results * Colonoscopy External Entry (04/29/2014) Narrative Madina Reyes - 04/29/2014 Colonoscopy done 04/29/[address] Quirino Doran at [facility] Terrell Doran MD PROCEDURE/MINOR SURGICAL ORDERA BLES Final Result from Last 3 Months or Most Recently Relevant to Health Maintenance Insurance [employer] MEDICARE [employer] Advance Directives * Full Code (Latest Code Status on File) Date Activated Date Inactivated Comments 03/12/2022 12:02 PM 03/12/2022 2:54 PM Care Teams Edger Hand Relationship Specialty Start Date End Date Selin Lyon [address] [facility] [place] [address] PCP - General Internal Medicine 01/22/22
--- OUTSIDE RECORDS SUMMARY | 2025-07-09 06:29 | EXTERNAL MEDICAL SUMMARY RPT | Encounter Summary ---
Author Organization [facility] Address [address] [place] [address] Care Team Providers Care Office Worker Name Role Phone Selin Lyon Primary Care Provider [phone] Encounter Details Date Type Department Care Team (Late st Contact Info) Description 02/11/2022 Scanned Document SCANNED ONLY Scanned, Document Social History Tobacco Use Types Packs/Day Years Used Date Smoking Tobacco: Never Smokeless Tobacco: Never Alcohol Use Standard Drinks/Week Comments Not Currently 0 (1 standard drink = 0.6 oz pur e alcohol) Sex and Gender Information Value Date Recorded Sex Assigned at Not on file Legal Sex Male 9:41 AM PDT Gender Identity Not on file Sexual Orientation Not on file documented as of this encounter Plan of Treatment Not on file documented as of this encounter Visit Diagnoses Not on filedocumented in this encounter Additional Health Concerns Infection Onset Date Last Indicated Resolved Time RULE-OUT Novel Coronavirus (COVID-19) 02/14/2022 02/14/2022 03/06/2022 9:59 PM P DT RULE-OUT Novel Coronavirus (COVID-19) 03/10/2022 03/10/2022 03/10/2022 5:14 PM P DT documented as of this encounter Care Teams Office Worker Relationship Specialty Start Date End Date Selin Lyon [address] [place], [place] [id number] PCP - General Internal Medicine 01/22/22 documented as of this encounter
--- OUTSIDE RECORDS SUMMARY | 2025-07-09 06:29 | EXTERNAL MEDICAL SUMMARY RPT | Encounter Summary ---
Author Organization [facility] Address [address] [place] [address] Care Team Providers Care Restrooms Or Lounges Maid Name Role Phone Selin Lyon Primary Care Provider [phone] Encounter Details Date Type Department Care Team (Late st Contact Info) Description 01/01/2022 Scanned Document SCANNED ONLY Scanned, Document Social History Tobacco Use Types Packs/Day Years Used Date Smoking Tobacco: Never Assessed Sex and Gender Information Value Date Recorded [...] documented as of this encounter Care Teams Restrooms Or Lounges Maid Relationship Specialty Start Date End Date Selin Lyon [address] [place] [address] PCP - General Internal Medicine 01/22/22 documented as of this encounter
--- OUTSIDE RECORDS SUMMARY | 2025-07-09 06:29 | EXTERNAL MEDICAL SUMMARY RPT | Encounter Summary ---
Author Organization [facility] Address [address] [place] [address] Care Team Providers Care Net Coordinator Name Role Phone Selin Lyon Primary Care Provider Encounter Details Date Type Department Care Team (Late st Contact Info) Description 12/26/2021 Scanned Document SCANNED ONLY Scanned, Document Social [...] documented as of this encounter Care Teams Net Coordinator Relationship Specialty Start Date End Date Selin Lyon [address] [place] [address] PCP - General Internal Medicine 01/22/22 documented as of this encounter
--- OUTSIDE RECORDS SUMMARY | 2025-07-09 06:29 | EXTERNAL MEDICAL SUMMARY RPT | Encounter Summary ---
Author Organization [facility] Address [address] [place] [address] Care Team Providers Care Personal Banking Officer Name Role Phone Selin Lyon Primary Care Provider [phone] Encounter Details Date Type Department Care Team (Late st Contact Info) Description 04/29/2014 Scanned Document SCANNED ONLY Scanned, Document Social [...] documented as of this encounter Care Teams Personal Banking Officer Relationship Specialty Start Date End Date Selin Lyon [address] [place] [address] PCP - General Internal Medicine 01/22/22 documented as of this encounter
--- OUTSIDE RECORDS SUMMARY | 2025-07-09 06:29 | EXTERNAL MEDICAL SUMMARY RPT | Clinical Summary ---
Author Organization [facility] [place] Address [address] [place] [address] Care Team Providers Care Oak Tanner Name Role Phone Selin Lyon MD Primary Care Provider + Christopher Magana MD Unavailable [phone] Allergies No known active allergies Medications allopurinol 300 MG tablet Take 150 mg by mouth daily. Active tadalafil 2.5 MG tablet Take 2.5 mg by mouth as needed. Active omeprazole [address] capsule Take 20 mg by mouth daily on an empty stomach. Active doxazosin 1 MG tablet Take 1 mg by mouth at bedtime. Active tocopherol (Vitamin E) 45 mg (100 unit) capsule Take 45 mg by mouth daily. Active Multiple Vitamins-[place] ls (VITAMIN D3 COMPLETE OR) Take by mouth. Active Cholecalciferol (VITAMIN D-3 OR) Take 1 tablet by mouth daily. Active Red Yeast Rice Extract (RED YEAST RICE OR) Take 1 tablet by mouth daily. Active Saw [place] (Serenoa repens) (SAW [place] OR) Take 1 capsule by mouth daily. Active polyethylene glycol 3350 17 GM/SCOOP oral powder Take 17 g by mouth daily. Fill cap with powder to the 17 gram curt and dissolve in 4 to 8 ounces of water. 255 g 01/19/2022 Active senna 8.6 MG tablet Take 1 tablet (8.6 mg) by mouth at bedtime. 14 tablet 01/19/2022 Active sodium chloride 0.9 % irrigation solution Irrigate with 60 mL once as directed as needed for use for clogged catheter 250 mL 01/19/2022 1:45 PM PDT 01/19/2022 Active oxybutynin ER 5 MG 24 hr tabletIndicatio ns:Urinary frequency Take 1 tablet (5 mg) by mouth daily. 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 Social History Tobacco Use Types Packs/Day Years Used Date Smoking Tobacco: Never Alcohol Use Standard Drinks/Week Comments Yes 2 (1 standard drink = 0.6 oz pur e alcohol) 1 drink per week Sex and Gender Information Value Date Recorded Sex Assigned at Male 09/25/2021 8:22 PM PST Legal Sex Male 3:33 PM PST Gender Identity Male 09/25/2021 8:22 PM PST Sexual Orientation Straight 01/18/2022 9: 25 AM PDT Last Filed Vital Signs Vital Sign Reading Time Taken Comments Blood Pressure 135/83 02/18/2022 11:12 AM PDT Pulse 54 02/18/2022 11:12 AM PDT Temperature 36.9 C (98.4 F) 01/19/2022 11:56 AM PDT Respiratory Rate 16 01/19/2022 11:5 6 AM PDT Oxygen Saturation 95% 01/19/2022 11: 56 AM PDT Inhaled Oxygen Concentration - - Weight 109.7 kg (241 lb 13.5 oz) 01/18/2022 8:57 AM PDT Height 188 cm (6' 2.02") 01/18/2022 8:57 AM PDT Body Mass Index 31.04 01/18/2022 8:57 AM PDT Plan of Treatment Not on file Medical Devices Implanted Type Area Anti Tank Missileman Device Identifier Shelf Expiration Date Model / Serial / Lot Hip Replacement Bilateral: Hip Insurance [facility] MEDIC[facility] Advance Directives For more information, please contact: [phone] Documents on File Type Date Recorded 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
== END 2025-07-02 15:55 | disposition home or self-care (01) | DRG 200 ==
LOC: ED 13:04 → MS3 13:04
PROVIDERS: ADMIT Surgery; ATTEND Surgery